=== PATIENT | female | born 1995 | race Caucasian/White ===

== ENCOUNTER 2018-02-26 15:57 | Emergency (ER) | payer SELFPAY ==
[~2018-02-26] VITALS: Ht 149.9 cm; Wt 55.7 kg
[2018-02-26 16:07] VITALS: BP 121/74
[2018-02-26] MEDS ORDERED: SODIUM CHLORIDE FLUSH 10ML SYR IVF ONE (17:00)
== END 2018-02-26 17:02 | disposition left against medical advice (07) ==
LOC: ED 16:56
DX: G89.11 Acute pain due to trauma (principal); R10.11 Right upper quadrant pain; M79.671 Pain in right foot; M79.642 Pain in left hand; M54.5 Low back pain; V49.59XA Passenger injured in collision with other motor vehicles in traffic accident, initial encounter; Y93.89 Activity, other specified; Y92.89 Other specified places as the place of occurrence of the external cause; Y99.8 Other external cause status
CPT/HCPCS: 36415; 84702; 99283